=== PATIENT | female | born 2000 | race Two or more races ===

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

== ENCOUNTER 2023-10-28 07:33 | Emergency (ER) | payer SELFPAY | END 2023-10-28 08:46 | disposition home or self-care (01) | LOC: JP.ED 07:33 | DX: M67.90 Unspecified disorder of synovium and tendon, unspecified site (principal); X50.0XXA Overexertion from strenuous movement or load, initial encounter | CPT/HCPCS: 73120-26-RT; 73120-RT; 99283 ==